=== PATIENT | female | born 1950 | race Caucasian/White ===

== ENCOUNTER 2018-05-03 12:07 | Outpatient (CLI) | payer MEDICARE, OTHER | END 2018-05-03 12:08 | disposition home or self-care (01) | LOC: BICRAD 12:07 | PROVIDERS: ATTEND Internal Medicine Gastroenterology | DX: R10.84 Generalized abdominal pain (principal); R19.8 Other specified symptoms and signs involving the digestive system and abdomen; Z90.49 Acquired absence of other specified parts of digestive tract | CPT/HCPCS: 74022 ==

== ENCOUNTER 2020-04-11 08:53 | Emergency (ER) | payer MEDICARE, OTHER ==
[2020-04-11] MEDS ORDERED: Ondansetron ODT 4 MG TAB ONE (09:26)
[2020-04-11 09:36] LABS: #Basophils 0.1 thou/uL (0.0-0.2); #Eosinphils 0.1 thou/uL (0.0-0.7); #Lymphocytes 1.3 thou/uL (1.20-3.40); #Monocytes 0.5 thou/uL (0.11-0.59); #Neutrophils 6.3 thou/uL (1.40-6.50); %Eosinophils 1.7 % (0.0-10.0); %Lymphocytes 15.2 % (21.0-51.0); %Monocytes 6.3 % (0.0-10.0); %Neutrophils 75.7 % (42.0-75.0); Hemoglobin 15.7 g/dL (12.0-16.0); Mean Corpuscular Volume 93.9 fL (78.0-98.0); Mean Platelet Volume 10.2 fL (7.4-10.4); Platelet Count 143 thou/uL (130-400); RBC Distribution Width 12.2 % (11.5-14.5); Red Blood Cell (RBC) Count 5.06 mill/uL (4.20-5.40); White Blood Cell (WBC) Count 8.3 thou/uL (4.8-10.8)
[2020-04-11 09:58] LABS: Bilirubin Negative (Negative); Blood, Urine Negative (Negative); Clarity Clear (Clear); Glucose, Urine (Dipstick) Normal (Negative); Leukocyte Negative Leu/uL (Negative); Nitrite Negative (Negative); Protein, Urine (Dipstick) Negative (Neg-Trace); Urobilinogen Normal mg/dL (Less than 2)
[2020-04-11 10:06] LABS: ALT (SGPT) 12 U/L (8-55); AST (SGOT) 17 U/L (5-34); Albumin 4.1 g/dL (3.4-4.8); Alkaline Phosphatase 107 U/L (40-110); Anion Gap 14 mmol/L (10-20); BUN (Urea Nitrogen) 8 mg/dL (9.8-20.1); Bilirubin, Total 0.7 mg/dL (0.2-1.2); Calc. Creatinine Clearance 0 mL/min (70-130); Calcium 9.6 mg/dL (7.8-10.44); Carbon Dioxide 25 mmol/L (23-31); Chloride 107 mmol/L (98-107); Estimated GFR-MDRD 74; Globulin 2.8 g/dL (2.4-3.5); Glucose 94 mg/dL (83-110); Lipase 31 U/L (8-78); Magnesium 2.2 mg/dL (1.6-2.6); Potassium 3.9 mmol/L (3.5-5.1); Protein, Total 6.9 g/dL (6.0-8.3); Sodium 142 mmol/L (136-145)
--- NOTE | 2020-04-12 15:41 | EKG ---
Test Reason : CP Blood Pressure : / mmHG Vent. Rate : 059 BPM Atrial Rate : 059 BPM P-R Int : 184 ms QRS Dur : 096 ms QT Int : 406 ms P-R-T Axes : 074 -19 011 degrees QTc Int : 401 ms Sinus bradycardia with sinus arrhythmia Minimal voltage criteria for LVH, may be normal variant Nonspecific ST abnormality Abnormal ECG Confirmed by GAYATRI BAKER M.D. ([id number]), supervising editor trailer JENI MCCOY ([id number]) on 04/12/2020 3:40:45 PM Also confirmed by GAYATRI BAKER M.D. ([id number]), supervising editor trailer JENI MCCOY ([id number]) on 04/12/2020 3:41:27 PM Referred By: Confirmed By:GAYATRI BAKER M.D.
== END 2020-04-11 10:39 | disposition home or self-care (01) ==
LOC: ERS 08:53
DX: R11.0 Nausea (principal); R10.11 Right upper quadrant pain; I10 Essential (primary) hypertension; Z79.899 Other long term (current) drug therapy
CPT/HCPCS: 36415; 80053; 81003; 83690; 83735; 84484; 85025; 93005; Q0162